=== PATIENT | male | born 1940 | race Caucasian/White ===

== ENCOUNTER 2019-07-10 09:30 | Outpatient (RCR) | payer MEDICARE, OTHER, SELFPAY | END 2019-08-02 23:59 | disposition home or self-care (01) | LOC: SPT 09:30 | PROVIDERS: Family Provider Family Medicine; PCP Family Medicine; Referring Provider Student in an Organized Health Care Education/Training Program; Visit Provider Student in an Organized Health Care Education/Training Program | DX: Z96.652 Presence of left artificial knee joint (principal) | CPT/HCPCS: 97110; 97162 ==

== ENCOUNTER 2019-08-03 06:00 | Outpatient (RCR) | payer MEDICARE, OTHER, SELFPAY | END 2019-08-23 13:26 | disposition home or self-care (01) | LOC: SPT 06:00 | PROVIDERS: PCP Family Medicine; Referring Provider Student in an Organized Health Care Education/Training Program; Visit Provider Student in an Organized Health Care Education/Training Program | DX: Z47.1 Aftercare following joint replacement surgery (principal); Z96.652 Presence of left artificial knee joint | CPT/HCPCS: 97110 ==

== ENCOUNTER 2023-03-11 09:16 | Outpatient (RCR) | payer MEDICARE, OTHER, SELFPAY | END 2023-04-03 23:59 | disposition home or self-care (01) | LOC: SPT 09:16 | PROVIDERS: PCP Family Medicine; Visit Provider Orthopaedic Surgery | DX: Z47.1 Aftercare following joint replacement surgery (principal); Z96.652 Presence of left artificial knee joint | CPT/HCPCS: 97110; 97140; 97161; 97530 ==

== ENCOUNTER 2023-04-04 06:00 | Outpatient (RCR) | payer MEDICARE, OTHER, SELFPAY | END 2023-04-29 23:59 | disposition home or self-care (01) | LOC: SPT 06:00 | PROVIDERS: PCP Family Medicine; Visit Provider Orthopaedic Surgery | DX: Z47.89 Encounter for other orthopedic aftercare (principal) | CPT/HCPCS: 97110 ==